=== PATIENT | male | born 1995 | race Caucasian/White ===

== ENCOUNTER 2023-06-15 19:05 | Emergency (ER) | payer MEDICAID, OTHER ==
[2023-06-15 21:17] LABS: Bacteria/HPF None Seen HPF (None Seen); Bilirubin Negative (Negative); Blood, Urine Negative (Negative); CAUTI Indications for Culture Pelvic or flank pain; Clarity Clear (Clear); Glucose, Urine (Dipstick) Normal (Negative); Ketone, Urine Negative (Negative); Leukocyte Negative Leu/uL (Negative); Nitrite Negative (Negative); Protein, Urine (Dipstick) 10 mg/dL (Neg-Trace); RBC/HPF None Seen HPF (0-3); Specific Gravity, Urine 1.021 (1.002-1.036); Squamous Epithelial None Seen HPF (0-3); Urobilinogen Normal mg/dL (Less than 2); WBC/HPF 0-3 HPF (0-3)
[2023-06-15 21:18] LABS: Urine Culture Reflex No No
[2023-06-15] MEDS ORDERED: Gentamicin 80 MG/2 ML VIAL ONE ×2 (21:32→21:33)
[2023-06-16 13:25] LABS: Chlam.trachomatis by PCR,Urine Not Detected (NotDetected); GC N.gonorrhoeae PCR,UrineVOID Not Detected (NotDetected)
== END 2023-06-15 22:10 | disposition home or self-care (01) ==
LOC: ERS 19:05
DX: R35.0 Frequency of micturition (principal)
CPT/HCPCS: 36416; 51798; 81001; 87491; 87591; J1580